=== PATIENT | female | born 1985 | race Asian ===

== ENCOUNTER 2018-03-21 16:36 | Emergency (ER) | payer OTHER ==
[2018-03-21] MEDS ORDERED: NORMAL SALINE 1000 ML 1,000 ML IV ONE ×2 (17:05→17:06)
[2018-03-21] MEDS ORDERED: KETOROLAC TROMETHAMINE INJ/PF 30 MG/1 ML SDV IV ONE (17:05)
[2018-03-21] MEDS ORDERED: ONDANSETRON HCL INJ/PF 4 MG/2 ML SDV IV ONE (17:06)
--- NOTE | 2018-03-21 17:09 | ER Document Report ---
ED General - General Chief Complaint: Fever Stated Complaint: FEVER Time Seen by Provider: 03/21/18 17:01 TRAVEL OUTSIDE OF THE [place] IN LAST 30 DAYS: No - HPI Notes: Patient is a 32-year-old female that presents to the emergency department for chief complaint of fever and flank pain. Patient started having left flank pain and fevers yesterday. She states today she saw her primary care doctor who told her she had a urinary tract infection and possibly a kidney stone because there was some blood in the urine. Patient had a negative influenza study done at her PCPs office. When she went home she had a temperature of 105. Patient took Tylenol and then went to an urgent care because of how high the temperature was. At the urgent care she states her fever was 103, they referred her to the emergency room because there was "nothing they could do for her". Patient states she has had a achy left flank pain that has been constant since yesterday. She denies any aggravating or relieving factors. She reports some associated nausea with no vomiting. She denies any diarrhea or constipation. Patient was given Bactrim by her PCP this morning and did take 1 dose today. Past Medical History: Negative Past Surgical History: Social History: Denies drugs alcohol and tobacco Family History: Reviewed and noncontributory for presenting illness Allergies: Reviewed, see documented allergy list. REVIEW OF SYSTEMS: CONSTITUTIONAL : fever No chills No diaphoresis No recent illness EENT: No vision changes No congestion No sore throat CARDIOVASCULAR: No chest pain No palpitations RESPIRATORY: No shortness of breath No cough No difficulty breathing GASTROINTESTINAL: No abdominal pain No nausea No vomiting No diarrhea GENITOURINARY: dysuria hematuria No difficulty urinating MUSCULOSKELETAL: No back pain No leg pain No arm pain SKIN: No rashes No lesions LYMPHATIC: No swollen, enlarged glands. NEUROLOGICAL: No lightheadedness No headache No weakness No paresthesias PSYCHIATRIC: No anxiety No depression PHYSICAL EXAMINATION: Vital signs reviewed, nursing noted reviewed. GENERAL: Well-appearing, well-nourished and in no acute distress. HEAD: Atraumatic, normocephalic. EYES: Eyes appear normal, extraocular movements intact, sclera anicteric, conjunctiva are normal. ENT: nares patent, oropharynx clear without exudates. Dry mucous membranes. NECK: Normal range of motion, supple without lymphadenopathy LUNGS: Breath sounds clear to auscultation bilaterally and equal. No wheezes rales or rhonchi. HEART: Tachycardic and regular rhythm without murmurs ABDOMEN: Left CVA tenderness. Abdomen soft, nontender, normoactive bowel sounds. No rebound, guarding, or rigidity. No masses appreciated. EXTREMITIES: Nontender, good range of motion, no pitting or edema. NEUROLOGICAL: No focal neurological deficits. Moves all extremities spontaneously Motor and sensory grossly intact on exam. PSYCH: Normal mood, normal affect. SKIN: Warm, Dry, normal turgor, no rashes or lesions noted on exposed skin - Related Data Allergies/Adverse Reactions: No Known Allergies Allergy (Unverified 03/21/18 17:00) Past Medical History - Social History Smoking Status: Unknown if Ever Smoked Patient has suicidal ideation: No Patient has homicidal ideation: No Renal/ Medical History: Denies: Hx Peritoneal Dialysis Past Surgical History: Reports: Hx Section - x1, Hx Oral Surgery - wisdom teeth Physical Exam - Vital signs Vitals: Temp Pulse Resp BP Pulse Ox 98.8 F 130 H 28 H 105/62 93 03/21/18 16:43 03/21/18 16:43 03/21/18 16:43 03/21/18 16:43 03/21/18 16:43 Course - Re-evaluation Re-evalutation: 03/21/18 17:09 Vitals reviewed. Nursing notes reviewed. Patient is afebrile and tachycardic at presentation to the emergency room. She has dry mucous membranes and was given IV hydration as well as pain medication and antiemetics. - Vital Signs Vital signs: Temp Pulse Resp BP Pulse Ox 98.8 F 130 H 28 H 105/62 93 03/21/18 16:43 03/21/18 16:43 03/21/18 16:43 03/21/18 16:43 03/21/18 16:43
--- NOTE | 2018-03-21 18:06 | RADIOLOGY REPORT (SQ) ---
EXAM DESCRIPTION: CT ABD/PELVIS NO ORAL OR IV COMPLETED DATE/TIME: 03/21/2018 5:42 pm REASON FOR STUDY: left flank pain COMPARISON: None. TECHNIQUE: CT scan of the abdomen and pelvis performed without intravenous or oral contrast. Images reviewed with lung, soft tissue, and bone windows. Reconstructed coronal and sagittal MPR images revi ewed. All images stored on PACS. All CT scanners at this facility use dose modulation, iterative reconstruction, and/or weight based d osing when appropriate to reduce radiation dose to as low as reasonably achievable (ALARA). [facility]: Dose Right [facility]: CareDose [facility]: Dose Right [facility]: Teradose 4D [facility]: Smart [email or web address] RADIATION DOSE: CT Rad equipment meets quality standard of care and radiation dose reduction techniq ues were employed. CTDIvol: 5.5 mGy. DLP: 300 mGy-cm.mGy. LIMITATIONS: None. FINDINGS: LOWER CHEST: No significant findings. No nodules or infiltrates. NON-CONTRASTED LIVER, SPLEEN, ADRENALS: Evaluation limited by lack of IV contrast. No identified sign ificant masses. PANCREAS: No masses. No peripancreatic inflammatory changes. GALLBLADDER: No identified stones by CT criteria. No inflammatory changes to suggest cholecystitis. RIGHT KIDNEY AND URETER: No suspicious masses. Assessment limited by lack of IV contrast. No signif icant calcifications. No hydronephrosis or hydroureter. LEFT KIDNEY AND URETER: There is mild left perinephric stranding along the inferior pole. No signif icant calcifications. There is periureteral stranding along the proximal left ureter. This could r epresent changes from recently passed stone. There are no calcified stones. This is not the typical pattern with pyelonephritis. AORTA AND RETROPERITONEUM: No aneurysm. No retroperitoneal masses or adenopathy. BOWEL AND PERITONEAL CAVITY: No obvious masses or inflammatory changes. No free fluid. APPENDIX: Normal. PELVIS, BLADDER, AND ABDOMINAL WALL:No abnormal masses. No free fluid. Bladder normal. BONES: No significant findings. OTHER: No other significant finding. IMPRESSION: The minimal stranding along the inferior pole the left kidney. There is moderate proxim al left periureteral stranding. No calcified stones or obstructing masses are identified on this non contrast exam. Changes may be secondary to recently passed stone. There is no hydronephrosis. COMMENT: Quality ID # [id number]: Final reports with documentation of one or more dose reduction techniques (e.g., Automated exposure control, adjustment of the mA and/or kV according to patient size, use of iterative reconstruction technique) TECHNICAL DOCUMENTATION: JOB ID: [id number] [email or web address]- All Rights Reserved Reading location - IP/workstation name: [email or web address]
[2018-03-21 18:28] LABS: HEMATOCRIT 40.8 % (36.0-47.0); HEMOGLOBIN 13.9 g/dL (12.0-15.5); MEAN CORPUSCULAR HEMOGLOBIN 29.6 pg (27.0-33.4); MEAN CORPUSCULAR HGB CONC 34.1 g/dL (32.0-36.0); MEAN CORPUSCULAR VOLUME 87 fl (80-97); PLATELET COUNT 236 10^3/uL (150-450); RED BLOOD COUNT 4.71 10^6/uL (3.72-5.28); RED CELL DISTRIBUTION WIDTH 13.6 % (11.5-14.0); WHITE BLOOD COUNT 2.6 10^3/uL (4.0-10.5)
[2018-03-21 18:37] LABS: APPEARANCE,URINE SLIGHTLY-CLOUDY; BILIRUBIN,URINE NEGATIVE (NEGATIVE); COLOR,URINE YELLOW; GLUCOSE, URINE NEGATIVE (NEGATIVE); KETONES,URINE TRACE mg/dL (NEGATIVE); LEUKOCYTE ESTERASE,URINE MODERATE (NEGATIVE); NITRITE,URINE NEGATIVE (NEGATIVE); PROTEIN,URINE 30 mg/dL (NEGATIVE); URINE SPECIFIC GRAVITY 1.004; UROBILINOGEN,URINE NEGATIVE mg/dL (<2.0)
[2018-03-21 18:52] LABS: ANION GAP 14 (5-19); BLOOD UREA NITROGEN 16 mg/dL (7-20); CALCIUM 9.4 mg/dL (8.4-10.2); CARBON DIOXIDE 27 mmol/L (22-30); CHLORIDE 98 mmol/L (98-107); GLUCOSE 134 mg/dL (75-110); POTASSIUM 3.7 mmol/L (3.6-5.0); SODIUM 139.3 mmol/L (137-145)
--- NOTE | 2018-03-21 18:58 | ER Document Report ---
ED Medical Screen (RME) - General Chief Complaint: Fever Stated Complaint: FEVER Time Seen by Provider: 03/21/18 17:01 TRAVEL OUTSIDE OF THE [place] IN LAST 30 DAYS: No - HPI Notes: 03/21/18 18:57 ent is a 32-year-old female that presents to the emergency department for chief complaint of fever and flank pain. Patient started having left flank pain and fevers yesterday. She states today she saw her primary care doctor who told her she had a urinary tract infection and possibly a kidney stone because there was some blood in the urine. Patient had a negative influenza study done at her PCPs office. When she went home she had a temperature of 105. Patient took Tylenol and then went to an urgent care because of how high the temperature was. At the urgent care she states her fever was 103, they referred her to the emergency room because there was "nothing they could do for her". Patient states she has had a achy left flank pain that has been constant since yesterday. She denies any aggravating or relieving factors. She reports some associated nausea with no vomiting. She denies any diarrhea or constipation. Patient was given Bactrim by her PCP this morning and did take 1 dose today. ROS: GENERAL: fever of chills CV: Denies chest pain PHYSICAL EXAMINATION: GENERAL: Well-appearing, well-nourished and in no acute distress. HEAD: Atraumatic, normocephalic. EYES: Pupils equal round extraocular movements intact, conjunctiva are normal. ENT: Nares patent NECK: Normal range of motion LUNGS: No respiratory distress Musculoskeletal: Normal range of motion NEUROLOGICAL: Normal speech, normal gait. PSYCH: Normal mood, normal affect. MDM: Patient seen and examined for rapid initial assessment. Vital signs reviewed. A comprehensive ED assessment and evaluation of the patient, analysis of test results and completion of the medical decision making process will be conducted by additional ED providers. - Related Data Allergies/Adverse Reactions: No Known Allergies Allergy (Unverified 03/21/18 17:00) Past Medical History Renal/ Medical History: Denies: Hx Peritoneal Dialysis Past Surgical History: Reports: Hx Section - x1, Hx Oral Surgery - wisdom teeth Physical Exam - Vital signs Vitals: Temp Pulse Resp BP Pulse Ox 98.8 F 130 H 28 H 105/62 93 03/21/18 16:43 03/21/18 16:43 03/21/18 16:43 03/21/18 16:43 03/21/18 16:43 Course - Vital Signs Vital signs: Temp Pulse Resp BP Pulse Ox 98.8 F 130 H 28 H 105/62 93 03/21/18 16:43 03/21/18 16:43 03/21/18 16:43 03/21/18 16:43 03/21/18 16:43 - Laboratory Result Diagrams: 03/21/18 17:26 03/21/18 17:26 Laboratory results interpreted by me: 03/21/18 03/21/18 03/21/18 17:26 17:26 17:26 WBC 2.6 L Est GFR (Non-Af Amer) 56 L Glucose 134 H Urine Protein 30 H Urine Ketones TRACE H Urine Blood SMALL H Ur Leukocyte Esterase MODERATE H
--- NOTE | 2018-03-21 20:19 | ER Document Report ---
ED Fever - General Chief Complaint: Fever Stated Complaint: FEVER Time Seen by Provider: 03/21/18 20:19 Mode of Arrival: Ambulatory Information source: Patient, Relative Notes: Patient is a 32-year-old female who presents with left flank pain along with elevated fever for the past day. Patient was seen by her primary physician today and told she had "a urine infection," was given prescription for Bactrim. Her initial fever improved with Tylenol, however it elevated again to a reported level of 105 F, Motrin brought this down to 103 F. Patient was seen at urgent care and instructed to come to the emergency department. Currently she states that the flank pain has improved, she feels better overall. She denies nausea or vomiting, no hematuria or dysuria. TRAVEL OUTSIDE OF THE [place] IN LAST 30 DAYS: No - HPI Onset: Other - 1-2 days ago Onset/Duration: Sudden Quality of pain: Achy Severity: Moderate Pain Level: 1 Context: Urinary tract infection Associated symptoms: Other - Left flank pain Similar symptoms previously: No Recently seen / treated by doctor: Yes - Related Data Allergies/Adverse Reactions: No Known Allergies Allergy (Unverified 03/21/18 17:00) Past Medical History - General Information source: Patient - Social History Smoking Status: Unknown if Ever Smoked Cigarette use (# per day): No Chew tobacco use (# tins/day): No Frequency of alcohol use: None Drug Abuse: None Lives with: Family Family History: Reviewed & Not Pertinent Patient has suicidal ideation: No Patient has homicidal ideation: No - Past Medical History Cardiac Medical History: Reports: None Pulmonary Medical History: Reports: None EENT Medical History: Reports: None Neurological Medical History: Reports: None Endocrine Medical History: Reports: None Renal/ Medical History: Reports: None. Denies: Hx Peritoneal Dialysis Malignancy Medical History: Reports: None GI Medical History: Reports: None Musculoskeletal Medical History: Reports None Skin Medical History: Reports None Psychiatric Medical History: Reports: None Traumatic Medical History: Reports: None Infectious Medical History: Reports: None Past Surgical History: Reports: Hx Section - x1, Hx Oral Surgery - wisdom teeth - Immunizations Immunizations up to date: Yes Hx Diphtheria, Pertussis, Tetanus Vaccination: Yes History of Influenza Vaccine for 01/2017 - 06/2017 Season: Unknown Review of Systems - Review of Systems Constitutional: See HPI, Fever EENT: No symptoms reported Cardiovascular: No symptoms reported Respiratory: No symptoms reported Gastrointestinal: No symptoms reported Genitourinary: See HPI, Flank pain Female Genitourinary: No symptoms reported Musculoskeletal: No symptoms reported Skin: No symptoms reported Hematologic/Lymphatic: No symptoms reported Neurological/Psychological: No symptoms reported -: Yes All other systems reviewed and negative Physical Exam - Vital signs Vitals: Temp Pulse Resp BP Pulse Ox 98.8 F 130 H 28 H 105/62 93 03/21/18 16:43 03/21/18 16:43 03/21/18 16:43 03/21/18 16:43 03/21/18 16:43 Interpretation: Normal - General General appearance: Appears well, Alert In distress: None - HEENT Head: Normocephalic, Atraumatic Eyes: Normal Pupils: PERRL - Respiratory Respiratory status: No respiratory distress Chest status: Nontender Breath sounds: Normal Chest palpation: Normal - Cardiovascular Rhythm: Regular Heart sounds: Normal auscultation Murmur: No - Abdominal Inspection: Normal Distension: No distension Bowel sounds: Normal Tenderness: Nontender Organomegaly: No organomegaly - Rectal Notes: Deferred - Genitourinary Notes: Deferred - Back Back: Normal, Nontender - Extremities General upper extremity: Normal inspection, Nontender, Normal color, Normal ROM , Normal temperature General lower extremity: Normal inspection, Nontender, Normal color, Normal ROM , Normal temperature, Normal weight bearing. No: Mauro's sign - Neurological Neuro grossly intact: Yes Cognition: Normal Orientation: AAOx4 Monika Coma Scale Eye Opening: Spontaneous Monika Coma Scale Verbal: Oriented [place] Coma Scale Motor: Obeys Commands Monika Coma Scale Total: 15 Speech: Normal Motor strength normal: LUE, RUE, LLE, RLE Sensory: Normal - Psychological Associated symptoms: Normal affect, Normal mood - Skin Skin Temperature: Warm Skin Moisture: Dry Skin Color: Normal Course - Re-evaluation Re-evalutation: 03/21/18 21:26 Patient currently feels improved and her fever has resolved. Urinalysis shows likely early urinary infection. CT scan shows mild swelling to the left inferior kidney and proximal ureter without evidence of obstructing stone. Patient could have recently passed a stone. She will be discharged home with return precautions and instructions to continue Bactrim as prescribed and to follow-up with urology as needed. Patient reports understanding and agreement with the plan. - Vital Signs Vital signs: Temp Pulse Resp BP Pulse Ox 97.9 F 130 H 28 H 105/62 93 03/21/18 20:25 03/21/18 16:43 03/21/18 16:43 03/21/18 16:43 03/21/18 16:43 - Laboratory Result Diagrams: 03/21/18 17:26 03/21/18 17:26 Laboratory results interpreted by me: 03/21/18 03/21/18 03/21/18 17:26 17:26 17:26 WBC 2.6 L Est GFR (Non-Af Amer) 56 L Glucose 134 H Urine Protein 30 H Urine Ketones TRACE H Urine Blood SMALL H Ur Leukocyte Esterase MODERATE H - Diagnostic Test Radiology reviewed: Reports reviewed Discharge - Discharge Clinical Impression: UTI (urinary tract infection) Qualifiers: Urinary tract infection type: acute cystitis Hematuria presence: without hematuria Qualified Code(s): N30.00 - Acute cystitis without hematuria Condition: Good Disposition: HOME, SELF-CARE Instructions: Trimethoprim-Sulfa ([facility]), Urinary Tract Infection ([facility]) Additional Instructions: Please follow-up with your regular physician in approximately 1 week to confirm adequate treatment of the your UTI. Follow-up with urology as needed to establish care in case you have future symptoms or need of specialty services. Return to the emergency department if you experience the inability to urinate, worsening fevers, or any other concerning symptom. Referrals: JARAD AMADOR DO [[facility]] - Follow up as needed Print Language: Albanian
[2018-03-21 21:48] VITALS: BP 90/51
== END 2018-03-21 21:55 | disposition home or self-care (01) ==
LOC: ER 16:36
DX: N30.00 Acute cystitis without hematuria (principal); R10.9 Unspecified abdominal pain; R50.9 Fever, unspecified
CPT/HCPCS: 99284; 96361; 96374; 96375; 36415; 87040; 87086; 85027; 87077; 80048; 81001; 83605; 74176; J1885; J2405; J7030; 87186